=== PATIENT | male | born 1955 | race Caucasian/White ===

== ENCOUNTER 2016-09-14 07:33 | Day surgery (SDC) | payer OTHER ==
[~2016-09-14] VITALS: Ht 176.5 cm; Wt 80.5 kg
[2016-09-14] VITALS (15 sets, daily range): BP systolic 116–159; BP diastolic 79–114; PULSE 54–91; TEMP 36.8–37.2; O2SAT 94–100; Ht 176.5 cm; Wt 80.5 kg
[2016-09-14] MEDS ORDERED: LIDOCAINE 4% W/AFRIN NASAL SOLN 4ML ONE (07:34)
[2016-09-14] MEDS ORDERED: OXYMETAZOLINE HCL 0.05% NA SPR 15 ML BTL ONE (07:34)
[2016-09-14] MEDS ORDERED: MIDAZOLAM HCL 5 MG/ML 1 ML VIAL IV ONE ×2 (07:34→11:30)
[2016-09-14] MEDS ORDERED: LIDOCAINE HCL 2% LOCAL 50ML VIAL INFIL ONE (07:34)
[2016-09-14] MEDS ORDERED: LEVALBUTEROL 1.25MG/3ML NEB INH ONE (07:34)
[2016-09-14] MEDS ORDERED: ASPI-391 (08:12)
[2016-09-14] MEDS ORDERED: MULT-506 PO (08:12)
[2016-09-14] MEDS ORDERED: SUMA50TA15 PO (08:12)
[2016-09-14] MEDS ORDERED: ONDANSETRON INJ 2 MG/ML 2 ML VIAL ONE (09:03)
--- NOTE | 2016-09-14 09:04 | Procedure Note ---
Pre-Mod Sedation Assessment General Date of Moderate Sedation: Sep 14, 2016. Vital Signs: Vital Signs Past 12 Hours Date Time Temp Pulse Resp B/P Pulse Ox O2 Delivery O2 Flow Rate FiO2 09/14/16 08:15 37.2 58 20 159/94 98 Room Air Pre-Sedation Airway Assessment Smoking Status: Never Smoker Mallampati Classification: Class I ASA Classification: Class I Procedure Planning Contraindications-for Mod Sed: None Yes Notes The planned sedation has been discussed with the patient and consent obtained. I have identified the patient, determined the appropriateness of sedation and have assessed the patient immediately prior to the procedure. All medicine(s) and interventions are by my order.
[2016-09-14] MEDS ORDERED: NURSING VERBAL MED ORDER ONE ×2 (09:15→10:30)
--- NOTE | 2016-09-14 09:17 | History & Physical Bridge Note ---
H&P Re-Evaluation Bridge Note: I have examined the patient, reviewed the History & Physical and in the interval since the performance of the History & Physical I have noted the following changes of clinical significance: No changes noted
--- NOTE | 2016-09-14 11:34 | Discharge Instructions ---
Discharge Instructions Admission Reason for Admission: Chronic Cough - Sarcoidosis Discharge Discharge Diagnosis / Problem: Cough Discharge Goals Goal(s): Diagnostic testing Activity Recommendations Activity Limitations: per Instructions/Follow-up section Lifting Limitations: none Exercise/Sports Limitations: rest today May Resume Sexual Activity: when tolerated Shower/Bathe: no limitations . Instructions / Follow-Up Instructions / Follow-Up ACTIVITY RECOMMENDATIONS: * Rest today, resume normal activity tomorrow. * Do not drive today. SPECIAL CARE INSTRUCTIONS: * Call your physician if you experience any chest or shoulder pain, fever, coughing, spitting up blood (more than 2 teaspoons) or excessive shortness of breath. * Remove dressing from IV site (where needle was placed into the vein) after 2 hours. Apply a warm, moist compress to site if irritation occurs. Call physician if site becomes red or painful to touch. FOLLOW UP VISIT: * Keep any scheduled doctor appointments: September 21, 2016 at 11:45AM with Shamir Alba PA-C Discharge Diet Recommended Diet: Regular Diet Fluid Restriction: None Procedures Procedures Performed: Bronchosocpy Pending Studies Studies pending at discharge: yes List of pending studies: Bronchoscopy cultures: bacterial, Fungal, AFB and Cytology: Results will be discussed on follow-up pulmonary appointment. Medical Emergencies . Who to Call and When: Medical Emergencies: If at any time you feel your situation is an emergency, please call 911 immediately. . Non-Emergent Contact Non-Emergency issues call your: [employer] . . "Provider Documentation" section prepared by Monica Pham. VTE Core Measure Inpt VTE Proph given/why not?: Contraindicated
--- NOTE | 2016-09-14 16:33 | OPERATIVE REPORT ---
DATE OF OPERATION: 09/14/2016 PROCEDURE: Fiberoptic bronchoscopy with bronchoalveolar lavage. INDICATIONS FOR PROCEDURE: History of pulmonary sarcoidosis with recurrent cough/congestion refractory to outpatient therapy. ANESTHESIA PREOPERATIVELY: 4 mg IV Zofran. ANESTHESIA DURING PROCEDURE: 4 mg IV Versed, 20 mL 2% Xylocaine spray above and below the cords, 4% viscous Xylocaine intranasally. DESCRIPTION OF PROCEDURE: Fiberoptic bronchoscope was inserted into the left naris without difficulty and passed to the level of the true vocal cords. The cords appeared to approximate normally with phonation without evidence of lesions or paralysis. The cords were anesthetized and the scope was then passed into the trachea and right and left tracheobronchial tree. The cj was sharp. Right main stem bronchus was explored initially and no endobronchial lesions were seen. The right upper lobe, the apical posterior, anterior segments, bronchus intermedius, right middle lobe and the medial and lateral segments and all basilar segments right lower lobe were found to be free of endobronchial lesions down to subsegmental bronchi. The scope was withdrawn to the level of the cj and then entered into the left tracheobronchial tree. No obvious endobronchial lesion was seen. Left upper lobe, the apical-posterior and anterior segments, lingular subdivision, left lower lobe were explored and no obvious endobronchial lesions were seen. A small amount of mucopurulent secretion was lavaged from left upper lobe and lingular subdivision. There was some [id number] inflammatory mucosal change seen at the take off of the left upper lobe and lingular subdivision and this area was brushed for cytologic preparation. No biopsies were attempted. The left upper lobe and lingula subdivision were copiously lavaged with normosol and the aspirate sent for appropriate studies. No significant bleeding was encountered. No transbronchial biopsies were attempted during this bronchoscopic evaluation. The procedure was terminated. The patient was given a nebulizer treatment with Xopenex 1.25 mg and transferred to the medical treatment unit hemodynamically stable with no signs of respiratory compromise. The patient was not given any preoperative or interoperative narcotics due to previous evaluation bronchoscopically where he complained of severe nausea and vomiting several hours postprocedure. (The patient underwent bronchoscopic evaluation in 2003 with transbronchial biopsy showing noncaseating granulomatous disease consistent with pulmonary sarcoidosis. Prior to this procedure, the patient had undergone 2 lengthy tapers of prednisone along with antibiotic utilization with the last antibiotic being doxycycline completed 4 days prior to this procedure. The patient also has been tapered off prednisone prior to this procedure. Previous CT scan on 09/04/2016 was reviewed and showed no suspicious adenopathy or significant parenchymal disease). We will await results of the bronchial washings from a cytologic and microbiologic standpoint. I attest to the content of the Intraoperative Record and any orders documented therein. Any exceptio ns are noted below.
[2016-10-08 19:53] LABS: HERPES SIMPLEX CULT SOURCE RESPIRATORY-LUL BROC; HERPES SIMPLEX VIRUS CULT NOT ISOLATED (NOT ISOLATED)
== END 2016-09-14 12:18 | disposition home or self-care (01) ==
LOC: C.ACU 07:33
PROVIDERS: ATTEND Internal Medicine Pulmonary Disease
DX: J40 Bronchitis, not specified as acute or chronic (principal); J32.9 Chronic sinusitis, unspecified; D86.9 Sarcoidosis, unspecified; R05 Cough; I10 Essential (primary) hypertension; G47.00 Insomnia, unspecified; I48.0 Paroxysmal atrial fibrillation